=== PATIENT | male | born 1960 | race American Indian/Alaskan Native ===

== ENCOUNTER 2016-12-25 10:07 | Outpatient (CLI) | payer BC ==
--- NOTE | 2016-12-25 11:53 | XRay Report ---
LUMBAR SPINE RADIOGRAPHS INDICATION: Strain of lumbar region. COMPARISON: None similar. FINDINGS: AP and lateral lumbar spine radiographs demonstrate minimal anterior wedging of L2-L4, likely chronic degenerative with mild degenerative spurring and few endplate changes as well. Preserved alignment and disc heights. Possible osteopenia. Nonobstructive bowel gas pattern. Clear visualized lung bases. CONCLUSION: Mild lumbar spine degenerative changes, as described. Direct comparison with similar prior imaging would also be helpful, if available. Thank you for the opportunity to participate in this patient's care.
== END 2016-12-25 10:08 | disposition home or self-care (01) ==
LOC: SPVIMAG 10:07
PROVIDERS: ATTEND Internal Medicine
DX: S39.012A Strain of muscle, fascia and tendon of lower back, initial encounter (principal); M47.896 Other spondylosis, lumbar region; X58.XXXA Exposure to other specified factors, initial encounter; Y93.89 Activity, other specified; Y92.89 Other specified places as the place of occurrence of the external cause; Y99.8 Other external cause status
CPT/HCPCS: 72100